=== PATIENT | female | born 1965 | race African-American/Black ===

== ENCOUNTER 2017-11-29 17:00 | Inpatient (IN) ==
[2017-11-29] MEDS ORDERED: DUONEB 0.5 MG/3 MG ONE ×2 (17:26→17:48)
[2017-11-29] MEDS ORDERED: DUONEB 0.5 MG/3 MG NEB ONE (17:28)
[2017-11-29] MEDS ORDERED: SOLU-Medrol 125 MG VIAL IVP ONE (17:28)
[2017-11-29] MEDS ORDERED: SOLU-Medrol 125 MG VIAL ONE (17:29)
--- NOTE | 2017-11-29 17:31 | DR.SOBA ---
HPI - Time Seen Time seen: 15:25 - Complaints Chief Complaint Doctors Comments: Patient presented to the ED with complaint of shortness of breath and the albuterol inhaler is not helping. She was diagnosed with asthma one month ago. She and spouse are smokers. PMH - PMH Past Medical History: Asthma ROS - Review of Systems Eyes: No Symptoms Reported ENTM: No Symptoms Reported Respiratoy: See HPI Cardiovascular: No Symptoms Reported Gastrointestinal/Abdominal: No Symptoms Reported Genitourinary: No Symptoms Reported Neurological: No Symptoms Reported Musculoskeletal: No Symptoms Reported Integumentary: No Symptoms Reported Hematologic/Lymphatic: No Symptoms Reported Endocrine: No Symptoms Reported Psychiatric: No Symptoms Reported All Other Systems: Reviewed and Negative PE - General General Appearance: Alert, Anxious, In Distress - Head Head Exam: Normal Inspection, Atraumatic - Eyes Eye exam: Normal Appearance, PERRL, EOMI - ENT ENT Exam: Normal Exam - Neck Neck Exam: Normal Inspection, Full ROM - Chest Chest Inspection: Normal Inspection, Symmetric Chest Wall Rise - Respiratory Respiratory Exam: Respiratory Distress Respiratory Exam: Bilateral Wheezing (inspiratory), Bilateral Rhonchi ( expiratory) - Cardiovascular Cardiovascular Exam: Regular Rate - Abdominal Exam Abdominal Exam: Normal Inspection Abdominal Tenderness: negative: RUQ, RLQ, LUQ, LLQ, Epigastrium, Suprapubic, Diffuse, Mild, Moderate, Severe, Other - Extremities Extremities Exam: Normal Inspection - Back Back Exam: Normal Inspection, Full ROM - Neurologic Neurological Exam: Alert, Oriented X3, CN II-XII Intact - Psychiatric Psychiatric Exam: Normal Affect - Skin Skin Exam: Warm, Dry, Intact - Vital Signs Vitals: Temperature 98.3 F Pulse Rate [Left Brachial] 91 Pulse Rate 82 Respiratory Rate 22 Blood Pressure [Left Arm] 132/68 Blood Pressure 195/109 O2 Sat by Pulse Oximetry 92 Course - Reevaluation 1st: Improved - Consultation Called: 18:55 (Dr Myrick agreed to admit for further evaluation) ROR - Labs Reviewed Result Diagrams: 11/29/17 17:25 11/29/17 17:25 - XRAY XRAY Interpreted by: Radiologist (Chest: normal heart size with clear lungs and pleural spaces. Impression: no acute or significant findings.) - Labs Reviewed Laboratory: WBC 12.7 X10^3/uL (3.6-10.0) H 11/29/17 17:25 RBC 4.58 X10^6/uL (3.5-5.4) 11/29/17 17:25 Hgb 13.3 g/dL (12.0-16.0) 11/29/17 17:25 Hct 40.2 % (36.0-47.0) 11/29/17 17:25 MCV 87.9 fL (80.0-100.0) 11/29/17 17:25 MCH 29.0 pg (27.0-34.0) 11/29/17 17:25 MCHC 33.0 g/dL (33.0-35.0) 11/29/17 17:25 RDW 15.0 % (11.6-16.5) 11/29/17 17:25 Plt Count 315 X10^3/uL (150.0-450.0) 11/29/17 17:25 MPV 7.6 fL (7.4-11.0) 11/29/17 17:25 Neut % (Auto) 72.6 % (42.0-75.0) 11/29/17 17:25 Lymph % (Auto) 17.5 % (21.0-51.0) L 11/29/17 17:25 [place] % (Auto) 5.4 % (0.0-13.0) 11/29/17 17:25 Eos % (Auto) 3.6 % (0.9-2.9) H 11/29/17 17:25 Baso % (Auto) 0.9 % (0.2-1.0) 11/29/17 17:25 Neut # (Auto) 9.2 x10^3/uL (2.2-4.8) H 11/29/17 17:25 Lymph # (Auto) 2.2 X10^3/uL (1.3-2.9) 11/29/17 17:25 [place] # (Auto) 0.7 x10^3/uL (0.3-0.8) 11/29/17 17:25 Eos # (Auto) 0.5 x10^3/uL (0.0-0.2) H 11/29/17 17:25 Baso # (Auto) 0.1 X10^3/uL (0.0-0.1) 11/29/17 17:25 Absolute Nucleated RBC 0.0 /100WBC 11/29/17 17:25 Sample Site Lr 11/29/17 17:33 ABG pH 7.470 (7.35-7.45) H 11/29/17 17:33 ABG pCO2 34.0 mmHg (35.0-45.0) L 11/29/17 17:33 ABG pO2 53.0 mmHg (80.0-100.0) L 11/29/17 17:33 ABG HCO3 24.7 mmol/L (22-26) 11/29/17 17:33 ABG O2 Saturation 89.0 % (90-100) L 11/29/17 17:33 ABG Base Excess 1.4 mmol/L (-2.0-2.0) 11/29/17 17:33 Chele Test Pos 11/29/17 17:33 A-a Gradient 54.0 mmHg 11/29/17 17:33 FiO2 21.000 11/29/17 17:33 Blood Gas Comments Pt delphine well cdn 11/29/17 17:33 Sodium 142 mmol/L (136-145) 11/29/17 17:25 Corrected Sodium TNP 11/29/17 17:25 Potassium 3.7 mmol/L (3.5-5.1) 11/29/17 17:25 Chloride 105 mmol/L (98-107) 11/29/17 17:25 Carbon Dioxide 24.3 mmol/L (21-32) 11/29/17 17:25 BUN 7 mg/dL (7-18) 11/29/17 17:25 Creatinine 0.67 mg/dL (0.55-1.02) 11/29/17 17:25 Est GFR (MDRD) Af Amer > 60 (>60) 11/29/17 17:25 Est GFR (MDRD) Non-Af > 60 (>60) 11/29/17 17:25 Glucose 86 mg/dL (65-99) 11/29/17 17:25 Calcium 9.4 mg/dL (8.5-10.1) 11/29/17 17:25 - Diagnosis Discharge Problem: Respiratory distress Asthma exacerbation attacks Qualifiers: Asthma severity: severe Asthma persistence: persistent Qualified Code(s): J45.51 - Severe persistent asthma with (acute) exacerbation - Discharge Plan Disposition: ADMITTED INPATIENT Condition: Stable
[2017-11-29] MEDS: NS 1000 ML 1,000 ML IV SCH (17:35)
[2017-11-29 17:40] LABS: BASOPHILS # (AUTO) 0.1 X10^3/uL (0.0-0.1); BASOPHILS % (AUTO) 0.9 % (0.2-1.0); EOSINOPHILS # (AUTO) 0.5 x10^3/uL (0.0-0.2); EOSINOPHILS % (AUTO) 3.6 % (0.9-2.9); HEMATOCRIT 40.2 % (36.0-47.0); HEMOGLOBIN 13.3 g/dL (12.0-16.0); LYMPHOCYTES # (AUTO) 2.2 X10^3/uL (1.3-2.9); LYMPHOCYTES % (AUTO) 17.5 % (21.0-51.0); MEAN CORPUSCULAR VOLUME 87.9 fL (80.0-100.0); MEAN PLATELET VOLUME 7.6 fL (7.4-11.0); MONOCYTES # (AUTO) 0.7 x10^3/uL (0.3-0.8); MONOCYTES % (AUTO) 5.4 % (0.0-13.0); NEUTROPHILS # (AUTO) 9.2 x10^3/uL (2.2-4.8); NEUTROPHILS % (AUTO) 72.6 % (42.0-75.0); PLATELET COUNT 315 X10^3/uL (150.0-450.0); RED BLOOD COUNT 4.58 X10^6/uL (3.5-5.4); WHITE BLOOD COUNT 12.7 X10^3/uL (3.6-10.0)
--- NOTE | 2017-11-29 17:43 | RAD ---
Examination: Portable AP chest History: SOB with cough Findings: Normal heart size with clear lungs and pleural spaces. Impression: No acute or significant findings. Reported By:
[2017-11-29 17:44] LABS: ABG BASE EXCESS 1.4 mmol/L (-2.0-2.0); ABG HCO3 24.7 mmol/L (22-26)
[2017-11-29 17:45] LABS: ABG ALLEN TEST POS
[2017-11-29 17:48] LABS: BLOOD UREA NITROGEN 7 mg/dL (7-18); CALCIUM 9.4 mg/dL (8.5-10.1); CARBON DIOXIDE 24.3 mmol/L (21-32); CHLORIDE 105 mmol/L (98-107); CREATININE 0.67 mg/dL (0.55-1.02); SODIUM 142 mmol/L (136-145); eGFR NON BLACK RACES > 60 (>60)
[2017-11-29 19:57] LABS: ABG ALLEN TEST POS; ABG BASE EXCESS 0.6 mmol/L (-2.0-2.0); ABG HCO3 24.3 mmol/L (22-26)
[2017-11-29] MEDS ORDERED: LIPITOR TAB 40 MG PO SCH (21:00)
[2017-11-29 21:16] VITALS: BMI 43.0
[2017-11-29] MEDS: DUONEB 0.5 MG/3 MG NEB SCH (21:20)
[2017-11-30] MEDS: DUONEB 0.5 MG/3 MG NEB SCH ×3 (01:15→09:10)
[2017-11-30] MEDS: NS 1000 ML 1,000 ML IV SCH (02:10)
[2017-11-30 06:12] LABS: BASOPHILS # (AUTO) 0.1 X10^3/uL (0.0-0.1); BASOPHILS % (AUTO) 0.5 % (0.2-1.0); HEMATOCRIT 37.4 % (36.0-47.0); HEMOGLOBIN 12.4 g/dL (12.0-16.0); LYMPHOCYTES % (AUTO) 6.9 % (21.0-51.0); MEAN CORPUSCULAR HEMOGLOBIN 29.3 pg (27.0-34.0); MEAN CORPUSCULAR HGB CONC 33.2 g/dL (33.0-35.0); MEAN CORPUSCULAR VOLUME 88.2 fL (80.0-100.0); MEAN PLATELET VOLUME 8.1 fL (7.4-11.0); MONOCYTES # (AUTO) 0.2 x10^3/uL (0.3-0.8); MONOCYTES % (AUTO) 1.3 % (0.0-13.0); NEUTROPHILS # (AUTO) 13.8 x10^3/uL (2.2-4.8); NEUTROPHILS % (AUTO) 91.3 % (42.0-75.0); PLATELET COUNT 303 X10^3/uL (150.0-450.0); RED BLOOD COUNT 4.24 X10^6/uL (3.5-5.4); RED CELL DISTRIBUTION WIDTH 15.5 % (11.6-16.5); WHITE BLOOD COUNT 15.2 X10^3/uL (3.6-10.0)
[2017-11-30 06:22] LABS: ALANINE AMINOTRANSFERASE 24 Units/L (12-78); ALBUMIN 3.1 g/dL (3.4-5.0); ALKALINE PHOSPHATASE 79 Units/L (46-116); ASPARTATE AMINO TRANSFERASE 15 Units/L (15-37); BLOOD UREA NITROGEN 7 mg/dL (7-18); CALCIUM 9.1 mg/dL (8.5-10.1); CARBON DIOXIDE 23.5 mmol/L (21-32); CHLORIDE 109 mmol/L (98-107); COR CA(FOR HYPOALB) 9.8 mg/dL (8.5-10.1); COR NA(FOR HYPERGLY) 144 mmol/L (136-145); CREATININE 0.66 mg/dL (0.55-1.02); SODIUM 143 mmol/L (136-145); TOTAL PROTEIN 6.8 g/dL (6.4-8.2); eGFR NON BLACK RACES > 60 (>60)
[2017-11-30 06:23] LABS: BAND NEUTROPHILS % 2 % (0-10); PLATELET MORPHOLOGY COMMENT NORMAL (NORMAL)
[2017-11-30] MEDS ORDERED: SYNTHROID 175 mcg TAB PO SCH ×2 (06:30→09:00)
--- NOTE | 2017-11-30 06:37 | RAD ---
HISTORY: Shortness of breath Study: Single-view chest Comparison: 11/29/2017. Findings: Trachea is midline. Heart size is normal with aortic uncoiling. There is very mild hyperinflation of the lungs without infiltrate, CHF, pleural fluid or pneumothorax. Osseous structures are intact. IMPRESSION: Mild hyperinflation of the lungs without acute abnormality. Reported By:
[2017-11-30] MEDS ORDERED: PROzac PO SCH (09:00)
[2017-11-30] MEDS ORDERED: TOPROL XL PO SCH (09:00)
[2017-11-30] MEDS ORDERED: LASIX PO SCH (09:00)
[2017-11-30] MEDS ORDERED: PriLOSEC PO SCH (09:00)
[2017-11-30] MEDS ORDERED: K-DUR TAB 20 MEQ PO SCH (09:00)
[2017-11-30] MEDS ORDERED: FOLIC ACID TAB 1 MG PO SCH (09:00)
[2017-11-30 09:25] VITALS: BP 136/73
== END 2017-11-30 11:55 | disposition home or self-care (01) | DRG 191 ==
LOC: ER 17:17 → MED/SURG 19:59
PROVIDERS: ADMIT Obstetrics & Gynecology Obstetrics; ATTEND Obstetrics & Gynecology Obstetrics
DX: J44.1 Chronic obstructive pulmonary disease with (acute) exacerbation; R06.02 Shortness of breath; K21.9 Gastro-esophageal reflux disease without esophagitis; R06.03 Acute respiratory distress; E03.8 Other specified hypothyroidism; I10 Essential (primary) hypertension; R60.0 Localized edema; J45.51 Severe persistent asthma with (acute) exacerbation; F32.89 Other specified depressive episodes
CPT/HCPCS: 36415; 36600; 71010; 71045; 80048; 80053; 82803; 85025; 87040; 87070; 87205; 93005; 93010; 94640; 94760; 96365; 96367; 96374; 99283; 99284; A4216; A4222; J2930; J7030; J7620